=== PATIENT | female | born 1950 | race Caucasian/White ===

== ENCOUNTER 2019-07-22 11:23 | Outpatient (CLI) | payer MEDICARE, SELFPAY ==
--- NOTE | ~2019-07-22 | XR_ITS ---
XR sacrum coccyx min 2V, XR lumbar spine min 4V 07/22/2019 11:59 Indication: Low back pain. Sacral coccygeal disorder. Procedure: 5 views of the lumbar spine and 3 views of the sacrum/coccyx Comparison: No prior studies for comparison. Findings: There is disc narrowing at all lumbar levels. There is facet hypertrophy at L4-5 and L5-S1. No acute fracture or traumatic malalignment. Normal lumbar lordosis. Pedicles intact. Sacral foramen are symmetric. There are mild symmetric degenerative changes of the sacroiliac joints. There are mul tiple pelvic phleboliths. No acute fracture or traumatic malalignment. There is a right total hip art hroplasty. Impression: 1: Mild-moderate degenerative changes of the lumbar spine and sacroiliac joints. Reviewed, dictated and finalized at location A. Impression: 1: Mild-moderate degenerative changes of the lumbar spine and sacroiliac joints . Impression: 1: Mild-moderate degenerative changes of the lumbar spine and sacroiliac joints .
--- NOTE | ~2019-07-22 | XR_ITS ---
XR tibia fibula RT 2V, XR tibia fibula LT 2V 07/22/2019 11:59 (accession [id number]), 07/22/2019 12:00 (accession [id number]) Indication: Polyarthritis Procedure: 2 views of each tibia/fibula Comparison: No prior studies for comparison. Findings: There is a right total knee arthroplasty. There is moderate osteoarthritis of the left knee . Normal mineralization. No acute fracture or traumatic malalignment. No foreign bodies. Right knee a rthroplasty appears to be well seated. Impression: 1: Moderate osteoarthritis of the left knee. Reviewed, dictated and finalized at location A. Impression: 1: Moderate osteoarthritis of the left knee. Impression: 1: Moderate osteoarthritis of the left knee.
== END 2019-07-22 11:24 | disposition home or self-care (01) ==
PROVIDERS: PCP Family Medicine; Visit Provider Family Medicine
DX: M53.3 Sacrococcygeal disorders, not elsewhere classified (principal); M15.9 Polyosteoarthritis, unspecified; G89.29 Other chronic pain; M54.5 Low back pain; M17.12 Unilateral primary osteoarthritis, left knee
CPT/HCPCS: 72110; 72220; 73590

== ENCOUNTER 2019-11-25 01:30 | Outpatient (CLI) | payer MEDICARE, SELFPAY ==
[2019-11-25 19:25] LABS: SARS-CoV-2 RNA PCR Negative
== END 2019-11-25 01:31 | disposition home or self-care (01) ==
LOC: ANHCOVIDDT 01:30
PROVIDERS: PCP Family Medicine; Visit Provider Internal Medicine Gastroenterology
DX: Z01.812 Encounter for preprocedural laboratory examination (principal); Z20.828 Contact with and (suspected) exposure to other viral communicable diseases
CPT/HCPCS: 87635; C9803; U0003

== ENCOUNTER 2019-12-08 01:25 | Outpatient (CLI) | payer MEDICARE, SELFPAY ==
[2019-12-08 18:16] LABS: SARS-CoV-2 RNA PCR Negative
== END 2019-12-08 01:26 | disposition home or self-care (01) ==
LOC: ANHCOVIDDT 01:25
PROVIDERS: PCP Family Medicine; Visit Provider Internal Medicine Gastroenterology
DX: Z01.812 Encounter for preprocedural laboratory examination (principal); Z20.828 Contact with and (suspected) exposure to other viral communicable diseases
CPT/HCPCS: 87635; C9803; U0003

== ENCOUNTER 2019-12-10 01:19 | Day surgery (SDC) | payer MEDICARE, SELFPAY ==
[2019-11-20 13:31] VITALS: BMI 34.9
--- NOTE | 2019-12-02 14:57 | PC.NURSE ---
pt called an updated with new times and appts. pt denies any changes in medications or health.
[2019-12-10 08:50] VITALS: BP 133/69; PULSE 88; RESP 16; TEMP 36.7; O2SAT 99; BMI 36.7
[2019-12-10] MEDS: LACTATED RINGERS 1,000 ML 150 ML IV CONT (09:03)
[2019-12-10 09:07] LABS: Glucose Point of Care 158 (65-105)
--- NOTE | 2019-12-10 09:25 | P.CONGI_ITS ---
GI Consult Note Consult date/time: 12/10/19 09:25 HPI: Machelle Juarez is a 69 year old female Seen in evaluation at the request of Dr. shelli Narvaez. patient presents for follow-up colonoscopy. Patient has a history of adenomatous colon polyps removed from the colon in 2013. Patient st ates that her own weight appetite bowel movements are normal. She denies abdominal pain. She has had no bleeding. Family history is noncontributory. She states her bowel habits are normal at this time. Review of Systems Review of Systems: All systems reviewed & are unremarkable except as noted in HPI and below PMFSH Past Medical History Medical History Anemia Chronic anxiety Chronic depression Chronic low back pain Closed left hip fracture Coccygeal pain, acute GERD (gastroesophageal reflux disease) Seasonal allergic rhinitis Tubular adenoma of colon Family History Family History (Updated 10/31/18 @ 15:28 by DOCTOR UNKNOWN) Sibling Diabetes mellitus, Onset Age: 64 Mother Family history of bipolar disorder Patient's mother is , Onset Age: 88 Family history of Alzheimer's disease Grandparent Acute myocardial infarction Family history of Alzheimer's disease, Onset Age: 75 Father Family history of Alzheimer's disease, Onset Age: 78 Social History Social History Smoking status: Never smoker Alcohol intake: former Drinks per week: 1 Substance use: never Substance use type: does not use Living arrangements: with family Spiritual care concerns: No Meds Home Medications and Allergies Home Medications Medication Instructions Recorded Confirmed Type atorvastatin 10 mg tablet 10 mg PO DAILY 01/22/19 11/20/19 History lisinopril 10 mg tablet 10 mg PO DAILY 01/22/19 11/20/19 History metformin 500 mg tablet,extended 2,000 mg PO QPM tablet 01/22/19 11/20/19 History release 24 hr amitriptyline 10 mg tablet 10 mg PO DAILY tablet 03/03/19 11/20/19 History levothyroxine 150 mcg tablet 150 mcg PO DAILY #90 tablet 07/02/19 11/20/19 Rx meloxicam 15 mg tablet 15 mg PO DAILY PRN #90 tablet 07/22/19 11/20/19 Rx sitagliptin 100 mg tablet 100 mg PO DAILY #90 tablet 11/05/19 11/20/19 Rx Allergies Allergy/AdvReac Type Severity Reaction Status Date / Time No Known Allergies Allergy Mild Verified 12/10/19 08:49 Vital Signs Vital Signs - 24 hr 12/10/19 08:50 Temperature 98.0 F Pulse Rate 88 Respiratory Rate 16 Blood Pressure 133/69 Pulse Oximetry 99 Exam Narrative: Exam Narrative: Physical exam reveals patient to be alert. Vital signs stable. HEENT exam unremarkable. Patient is anicteric. Lungs are clear to auscultation and percussion. Heart is without murmur or extra sounds. Abdominal exam bowel sounds are present soft nontender with no organomegaly. Digital external rectal exam is normal.
--- NOTE | 2019-12-10 09:25 | WPDANESEPPF ---
Anes - Initial Pre Proc Eval Procedure: Operation Date: 12/10/19 09:30 Proposed Procedures p Screening Colonoscopy - Wes Reyes MD Date/Time: 12/10/19 09:25 Surgeon: Wes Reyes MD Pre Op Diagnosis: Hx Colon Polyps Patient Data Age: 69 Gender: F Height: 5 ft 2 in Weight: 91.1 kg Last Vital Signs Temp 36.7 C 12/10/19 08:50 Pulse 88 12/10/19 08:50 Resp 16 12/10/19 08:50 BP 133/69 12/10/19 08:50 Pulse Ox 99 12/10/19 08:50 Allergies Allergy/AdvReac Type Severity Reaction Status Date / Time No Known Allergies Allergy Mild Verified 12/10/19 08:49 Home Medications Medication Instructions Recorded Confirmed Type atorvastatin 10 mg tablet 10 mg PO DAILY 01/22/19 11/20/19 History lisinopril 10 mg tablet 10 mg PO DAILY 01/22/19 11/20/19 History metformin 500 mg tablet,extended 2,000 mg PO QPM tablet 01/22/19 11/20/19 History release 24 hr amitriptyline 10 mg tablet 10 mg PO DAILY tablet 03/03/19 11/20/19 History levothyroxine 150 mcg tablet 150 mcg PO DAILY #90 tablet 07/02/19 11/20/19 Rx meloxicam 15 mg tablet 15 mg PO DAILY PRN #90 tablet 07/22/19 11/20/19 Rx sitagliptin 100 mg tablet 100 mg PO DAILY #90 tablet 11/05/19 11/20/19 Rx Laboratory Tests 12/10/19 09:02 POC Capillary Glucose 158 mg/dl H mg/dl (65-105) Patient hx anesthesia problems: post op nausea/vomiting Family hx anesthesia problems: none PMFSH Past Medical History Medical History Anemia Chronic anxiety Chronic depression Chronic low back pain Closed left hip fracture Coccygeal pain, acute Essential (primary) hypertension GERD (gastroesophageal reflux disease) Hypothyroidism, unspecified Mixed hyperlipidemia Seasonal allergic rhinitis Tubular adenoma of colon Family History Family History Sibling Diabetes mellitus, Onset Age: 64 Mother Family history of bipolar disorder Patient's mother is , Onset Age: 88 Family history of Alzheimer's disease Grandparent Acute myocardial infarction Family history of Alzheimer's disease, Onset Age: 75 Father Family history of Alzheimer's disease, Onset Age: 78 Social History Social History Smoking status: Never smoker Alcohol intake: former Drinks per week: 1 Substance use: never Substance use type: does not use Living arrangements: with family Spiritual care concerns: No Anes - Eval Final PreProcedure Day of Procedure 12/10/19 09:25 Patient weight: obese Heart: regular rate and rhythm Lungs: clear to auscultation Airway: Mallampati scale class II Neurological: alert and oriented Last oral intake: >/= 8 hours ASA classification: III Emergent: no Anesthetic plan: proceed Anesthesia type and monitoring: general GIVS and standard monitoring Informed Consent: The patient's anesthetic plan and its attendant risks and benefits were discussed with the patient/family/POA. Questions were solicited and answers provided to the satisfaction of the patient/family/POA.
--- NOTE | 2019-12-10 09:36 | SUR.OPER ---
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
[2019-12-10 09:54] VITALS: BP 131/81; PULSE 80; RESP 19; O2SAT 97
[2019-12-10 10:04] VITALS: BP 124/80; PULSE 77; RESP 20; O2SAT 98
== END 2019-12-10 10:29 | disposition home or self-care (01) ==
PROVIDERS: PCP Family Medicine; Visit Provider Internal Medicine Gastroenterology
PROC: 0DJD8ZZ Inspection of Lower Intestinal Tract, Via Natural or Artificial Opening Endoscopic (ICD-10-PCS; CPT 45378; principal; 2019-12-10 09:30)
DX: Z12.11 Encounter for screening for malignant neoplasm of colon (principal); K64.8 Other hemorrhoids; Z86.010 Personal history of colon polyps; K21.9 Gastro-esophageal reflux disease without esophagitis; D64.9 Anemia, unspecified; F41.8 Other specified anxiety disorders; Z79.84 Long term (current) use of oral hypoglycemic drugs; E78.2 Mixed hyperlipidemia; E66.9 Obesity, unspecified; Z68.36 Body mass index [BMI] 36.0-36.9, adult
CPT/HCPCS: G0105; J2704; J7120